=== PATIENT | female | born 1935 | race Asian ===

== ENCOUNTER 2017-02-26 16:33 | Inpatient (IN) | payer MEDICARE, MEDICAID ==
[~2017-02-26] VITALS: Ht 149.9 cm; Wt 61.7 kg
[~2017-02-26 16:33] MED LIST: ACET-1770 PO; AMLO5TAB2 PO; ASCO500T8 PO; CALC0.25 PO; DOCU100T3 PO; FERR325T18 PO; LORA1TAB PO; MULT-658 PO; OLAN7.5T5 PO; ONDA4TAB10 PO; POLY17PO3 PO; PSYL1PAC9 PO; SERT100T5 PO; SERT50TA5 PO; VITA1TAB3 PO; [UNRECOGNIZED DRUG - CODE] PEG
[2017-02-26] MEDS ORDERED: SODIUM CHLORIDE FLUSH 10ML SYR IVF ONE (17:00)
[2017-02-26] MEDS ORDERED: MIDODRINE 5 MG TABLET PO ONE (17:00)
[2017-02-26] MEDS ORDERED: SODIUM CHLORIDE 0.9% 1,000ML IVBOLUS ONE ×2 (17:00→22:00)
[2017-02-26] MEDS ORDERED: HYDROCORTISONE 100 MG INJ. IVPush ONE (17:00)
[2017-02-26 17:02] LABS: BASOPHILS % (AUTO) 0 % (0-1); EOSINOPHILS % (AUTO) 0 % (1-7); LYMPHOCYTES # (AUTO) 0.68 x10^3/uL (1-3.4); LYMPHOCYTES % (AUTO) 5 % (22-44); MD NO; MEAN CORPUSCULAR HEMOGLOBIN 31.2 pg (27.0-34.8); MEAN CORPUSCULAR HGB CONC 31.8 g/dL (32.4-35.8); MEAN CORPUSCULAR VOLUME 98.1 fL (80-100); MEAN PLATELET VOLUME 9.6 fL (7.4-10.4); MONOCYTES # (AUTO) 0.76 x10^3/uL (0.2-0.8); MONOCYTES % (AUTO) 5 % (2-9); NEUTROPHILS # (AUTO) 12.52 x10^3/uL (1.8-6.8); NEUTROPHILS % (AUTO) 90 % (42-75); PLATELET COUNT 266 x10^3/uL (130-400); RED BLOOD COUNT 4.09 x10^6/uL (3.82-5.3); RED CELL DISTRIBUTION WIDTH 17.1 % (9.6-15.2)
[2017-02-26 17:09] LABS: ALBUMIN 5.2 g/dL (3.4-5.0); ANION GAP 21 mmol/L (5-15); CHLORIDE 92 mmol/L (98-107); CREATININE 3.84 mg/dL (0.55-1.02)
[2017-02-26] MEDS ORDERED: CEFTRIAXONE PMX 1GM/50ML 50 ML IVPB ONE (18:00)
[2017-02-26] MEDS: PLEASE ENTER HEIGHT AND WEIGHT MC SCH ×2 (18:30→21:33)
[2017-02-26] MEDS ORDERED: ASPI-496 PO (19:51)
[2017-02-26] MEDS ORDERED: [UNRECOGNIZED DRUG - CODE] PO (19:51)
[2017-02-26] MEDS ORDERED: MIDO10TA PO (19:51)
[2017-02-26] MEDS ORDERED: LORA-446 PO (19:51)
[2017-02-26] MEDS ORDERED: ATOR40TA PO (19:51)
[2017-02-26] MEDS ORDERED: CEFTRIAXONE PMX 1GM/50ML 50 ML ONE (19:52)
[2017-02-26 19:53] LABS: CLOSTRIDIUM DIFFICILE ANTIGEN NEGATIVE; CLOSTRIDIUM DIFFICILE TOXIN NEGATIVE (Negative)
[2017-02-26] MEDS ORDERED: DESMOPRESSIN 4 MCG/ML IVPush ONE (20:00)
[2017-02-26] MEDS ORDERED: OMNIPAQUE 350 MG/ML, 100ML BOTTLE ONE (21:14)
[2017-02-26] MEDS: SODIUM CHLORIDE 0.9% 1,000 ML IV SCH (22:17)
[2017-02-26] MEDS ORDERED: ONDANSETRON 2MG/ML, 2ML IVPush PRN (22:30)
[2017-02-26 23:01] VITALS: BP 95/74
[2017-02-26] MEDS: METRONIDAZOLE PMX 500MG/100ML 100 ML IV SCH (23:48)
[2017-02-27] MEDS ORDERED: ALBUTEROL/IPRATROPIUM 2.5MG/0.5MG, 3 ML NPPB PRN (02:00)
[2017-02-27 04:00] VITALS: BP 129/68
[2017-02-27 04:42] LABS: BASOPHILS # (AUTO) 0.01 x10^3/uL (0-0.1); BASOPHILS % (AUTO) 0 % (0-1); EOSINOPHILS % (AUTO) 0 % (1-7); LYMPHOCYTES # (AUTO) 0.73 x10^3/uL (1-3.4); LYMPHOCYTES % (AUTO) 6 % (22-44); MD NO; MEAN CORPUSCULAR HEMOGLOBIN 31.5 pg (27.0-34.8); MEAN CORPUSCULAR HGB CONC 32.5 g/dL (32.4-35.8); MEAN CORPUSCULAR VOLUME 96.7 fL (80-100); MEAN PLATELET VOLUME 9.6 fL (7.4-10.4); MONOCYTES # (AUTO) 0.41 x10^3/uL (0.2-0.8); MONOCYTES % (AUTO) 4 % (2-9); NEUTROPHILS # (AUTO) 10.77 x10^3/uL (1.8-6.8); NEUTROPHILS % (AUTO) 90 % (42-75); PLATELET COUNT 196 x10^3/uL (130-400); RED BLOOD COUNT 3.13 x10^6/uL (3.82-5.3); RED CELL DISTRIBUTION WIDTH 16.9 % (9.6-15.2)
[2017-02-27 04:52] LABS: CHLORIDE 103 mmol/L (98-107)
[2017-02-27 04:59] LABS: ALANINE AMINOTRANSFERASE 61 U/L (12-78); ALBUMIN 3.8 g/dL (3.4-5.0); ALKALINE PHOSPHATASE 131 U/L (45-117); ANION GAP 12 mmol/L (5-15); BILIRUBIN,TOTAL 0.4 mg/dL (0.2-1.0); CALCIUM 7.7 mg/dL (8.5-10.1); CREATININE 4.05 mg/dL (0.55-1.02)
[2017-02-27] MEDS: PANTOPRAZOLE 80 MG in SODIUM CHLORIDE 0.9% 100 ML IV SCH ×2 (06:02→18:37)
[2017-02-27] MEDS ORDERED: PANTOPRAZOLE 40 MG IV IVPush SCH (07:30)
[2017-02-27] MEDS: SERTRALINE 50MG TABLET PO SCH (08:03)
[2017-02-27] MEDS: SODIUM CHLORIDE 0.9% 1,000 ML IV SCH ×2 (08:04→21:04)
[2017-02-27] MEDS: METRONIDAZOLE PMX 500MG/100ML 100 ML IV SCH ×3 (08:04→22:57)
[2017-02-27] MEDS: MIDODRINE 5 MG TABLET PO SCH ×3 (08:04→21:29)
[2017-02-27] MEDS ORDERED: GOLYTELY 4,000ML ORAL.SOL PEG ONE (17:00)
[2017-02-27 20:00] VITALS: BP 140/78
[2017-02-27] MEDS ORDERED: CEFTRIAXONE PMX 1GM/50ML 50 ML IV SCH (21:00)
[2017-02-27] MEDS: SERTRALINE 100MG TABLET PO SCH (21:04)
[2017-02-28 02:00] VITALS: BP 150/88
[2017-02-28] MEDS: PANTOPRAZOLE 80 MG in SODIUM CHLORIDE 0.9% 100 ML IV SCH ×2 (05:22→10:30)
[2017-02-28 06:53] VITALS: BP 129/75
[2017-02-28] MEDS: METRONIDAZOLE PMX 500MG/100ML 100 ML IV SCH ×3 (07:17→23:46)
[2017-02-28] MEDS: SODIUM CHLORIDE 0.9% 1,000 ML IV SCH ×3 (08:00→21:31)
[2017-02-28] MEDS: SERTRALINE 50MG TABLET PO SCH (09:00)
[2017-02-28] MEDS: MIDODRINE 5 MG TABLET PO SCH ×3 (09:00→21:07)
[2017-02-28] MEDS ORDERED: FENTANYL PF 100 MCG/2ML ONE (09:02)
[2017-02-28] MEDS ORDERED: MIDAZOLAM 1 MG/ML, 5ML ONE (09:02)
[2017-02-28 10:41] VITALS: BP 166/81
[2017-02-28 12:51] VITALS: BP 156/69
[2017-02-28] MEDS ORDERED: ALBUMIN HUMAN 25% 100 ML IV ONE (17:00)
[2017-02-28] MEDS: CEFTRIAXONE 1,000 MG in DEXTROSE 5% 50 ML IV SCH (21:06)
[2017-02-28] MEDS: SERTRALINE 100MG TABLET PO SCH (21:07)
[2017-02-28 21:29] VITALS: BP 127/57
[2017-03-01] VITALS (12 sets, daily range): BP systolic 84–156; BP diastolic 54–85
[2017-03-01] MEDS: PANTOPRAZOLE 80 MG in SODIUM CHLORIDE 0.9% 100 ML IV SCH ×3 (04:06→20:46)
[2017-03-01 05:15] LABS: ANION GAP 13 mmol/L (5-15); CHLORIDE 104 mmol/L (98-107)
[2017-03-01 05:17] LABS: CALCIUM 7.9 mg/dL (8.5-10.1); CREATININE 3.52 mg/dL (0.55-1.02)
[2017-03-01 05:27] LABS: MEAN CORPUSCULAR HEMOGLOBIN 30.9 pg (27.0-34.8); MEAN CORPUSCULAR HGB CONC 32.2 g/dL (32.4-35.8); MEAN PLATELET VOLUME 9.6 fL (7.4-10.4); PLATELET COUNT 215 x10^3/uL (130-400); RED BLOOD COUNT 2.29 x10^6/uL (3.82-5.3); RED CELL DISTRIBUTION WIDTH 17.4 % (9.6-15.2)
[2017-03-01 06:23] LABS: BASOPHILS # (AUTO) 0.02 x10^3/uL (0-0.1); BASOPHILS % (AUTO) 0 % (0-1); EOSINOPHILS # (AUTO) 0.06 x10^3/uL (0-0.4); EOSINOPHILS % (AUTO) 1 % (1-7); LYMPHOCYTES # (AUTO) 1.08 x10^3/uL (1-3.4); LYMPHOCYTES % (AUTO) 10 % (22-44); MD SCAN; MONOCYTES # (AUTO) 0.66 x10^3/uL (0.2-0.8); MONOCYTES % (AUTO) 6 % (2-9); NEUTROPHILS # (AUTO) 9.39 x10^3/uL (1.8-6.8); NEUTROPHILS % (AUTO) 84 % (42-75)
[2017-03-01] MEDS: MIDODRINE 5 MG TABLET PO SCH ×3 (09:16→20:15)
[2017-03-01] MEDS: SERTRALINE 50MG TABLET PO SCH (09:16)
[2017-03-01] MEDS ORDERED: ARANESP 100 MCG/ML **ESRD SQ SCH (11:30)
[2017-03-01] MEDS: METRONIDAZOLE PMX 500MG/100ML 100 ML IV SCH ×2 (13:53→20:14)
[2017-03-01] MEDS: CEFTRIAXONE 1,000 MG in DEXTROSE 5% 50 ML IV SCH (20:14)
[2017-03-01] MEDS: SERTRALINE 100MG TABLET PO SCH (20:15)
[2017-03-02 02:13] VITALS: BP 156/85
[2017-03-02 04:56] LABS: MEAN CORPUSCULAR HEMOGLOBIN 31.5 pg (27.0-34.8); MEAN CORPUSCULAR HGB CONC 33.6 g/dL (32.4-35.8); MEAN CORPUSCULAR VOLUME 93.7 fL (80-100); MEAN PLATELET VOLUME 9.7 fL (7.4-10.4); PLATELET COUNT 222 x10^3/uL (130-400); RED BLOOD COUNT 2.46 x10^6/uL (3.82-5.3); RED CELL DISTRIBUTION WIDTH 18.3 % (9.6-15.2)
[2017-03-02 05:10] LABS: CHLORIDE 106 mmol/L (98-107)
[2017-03-02] MEDS: METRONIDAZOLE PMX 500MG/100ML 100 ML IV SCH ×3 (05:11→20:30)
[2017-03-02 05:15] LABS: ALANINE AMINOTRANSFERASE 58 U/L (12-78); ALBUMIN 3.5 g/dL (3.4-5.0); ALKALINE PHOSPHATASE 123 U/L (45-117); ANION GAP 13 mmol/L (5-15); BILIRUBIN,TOTAL 0.7 mg/dL (0.2-1.0); CALCIUM 7.4 mg/dL (8.5-10.1); CREATININE 4.92 mg/dL (0.55-1.02); TOTAL PROTEIN 7.1 g/dL (6.4-8.2)
[2017-03-02] MEDS: PANTOPRAZOLE 80 MG in SODIUM CHLORIDE 0.9% 100 ML IV SCH (05:44)
[2017-03-02 06:04] LABS: BASOPHILS # (AUTO) 0.09 x10^3/uL (0-0.1); BASOPHILS % (AUTO) 1 % (0-1); EOSINOPHILS # (AUTO) 0.14 x10^3/uL (0-0.4); EOSINOPHILS % (AUTO) 1 % (1-7); LYMPHOCYTES # (AUTO) 1.94 x10^3/uL (1-3.4); LYMPHOCYTES % (AUTO) 15 % (22-44); MD SCAN; MONOCYTES % (AUTO) 6 % (2-9); NEUTROPHILS # (AUTO) 9.63 x10^3/uL (1.8-6.8); NEUTROPHILS % (AUTO) 76 % (42-75)
[2017-03-02 08:09] VITALS: BP 163/88
[2017-03-02] MEDS ORDERED: POTASSIUM CHLORIDE 10% 20 MEQ/15 ML UDC PEG ONE (10:00)
[2017-03-02] MEDS ORDERED: POTASSIUM CHLORIDE 20 MEQ PACKET ONE (10:19)
[2017-03-02] MEDS: SERTRALINE 50MG TABLET PO SCH (10:24)
[2017-03-02] MEDS: MIDODRINE 5 MG TABLET PO SCH ×3 (10:24→20:31)
[2017-03-02 14:04] VITALS: BP 158/81
[2017-03-02 19:20] VITALS: BP 159/77
[2017-03-02] MEDS ORDERED: ALBUTEROL SULFATE 2.5 MG/3 ML ONE (20:00)
[2017-03-02] MEDS: SERTRALINE 100MG TABLET PO SCH (20:31)
[2017-03-02] MEDS: CEFTRIAXONE 1,000 MG in DEXTROSE 5% 50 ML IV SCH (20:31)
[2017-03-02] MEDS: ACETAMINOPHEN 325 MG TABLET PO PRN (20:32)
[2017-03-02 21:48] VITALS: BP 160/90
[2017-03-03 02:00] VITALS: BP 186/92
[2017-03-03] MEDS: ACETAMINOPHEN 325 MG TABLET PO PRN (02:43)
[2017-03-03 04:13] VITALS: BP 186/75
[2017-03-03] MEDS: METRONIDAZOLE PMX 500MG/100ML 100 ML IV SCH ×3 (05:10→21:00)
[2017-03-03 05:20] LABS: ANION GAP 12 mmol/L (5-15); CALCIUM 7.9 mg/dL (8.5-10.1); CHLORIDE 109 mmol/L (98-107)
[2017-03-03 05:22] LABS: CREATININE 6.64 mg/dL (0.55-1.02); MEAN CORPUSCULAR HEMOGLOBIN 30.8 pg (27.0-34.8); MEAN CORPUSCULAR HGB CONC 32.6 g/dL (32.4-35.8); MEAN CORPUSCULAR VOLUME 94.4 fL (80-100); MEAN PLATELET VOLUME 10.5 fL (7.4-10.4); PLATELET COUNT 231 x10^3/uL (130-400); RED BLOOD COUNT 2.56 x10^6/uL (3.82-5.3); RED CELL DISTRIBUTION WIDTH 18.1 % (9.6-15.2)
[2017-03-03 05:50] LABS: BASOPHILS % (AUTO) 0 % (0-1); EOSINOPHILS # (AUTO) 0.01 x10^3/uL (0-0.4); EOSINOPHILS % (AUTO) 0 % (1-7); LYMPHOCYTES # (AUTO) 1.01 x10^3/uL (1-3.4); LYMPHOCYTES % (AUTO) 8 % (22-44); MD SCAN; MONOCYTES # (AUTO) 0.87 x10^3/uL (0.2-0.8); MONOCYTES % (AUTO) 7 % (2-9); NEUTROPHILS # (AUTO) 10.23 x10^3/uL (1.8-6.8); NEUTROPHILS % (AUTO) 84 % (42-75)
[2017-03-03 08:30] VITALS: BP 185/83
[2017-03-03] MEDS: PANTOPRAZOLE GRAN. PKT 40 MG GT SCH (09:23)
[2017-03-03] MEDS: MIDODRINE 5 MG TABLET PO SCH ×3 (09:23→21:00)
[2017-03-03] MEDS: SERTRALINE 50MG TABLET PO SCH (09:25)
[2017-03-03] MEDS ORDERED: HALOPERIDOL 5 MG/ML ONE (12:46)
[2017-03-03] MEDS ORDERED: HALOPERIDOL 5 MG/ML IV ONE (13:00)
[2017-03-03 13:01] VITALS: BP 163/87
[2017-03-03] MEDS ORDERED: ALBUMIN HUMAN 25% IV PRN (16:30)
[2017-03-03] MEDS ORDERED: ALBUMIN HUMAN 25% 50 ML IV ONE (16:30)
[2017-03-03 20:41] VITALS: BP 119/71
[2017-03-03] MEDS: CEFTRIAXONE 1,000 MG in DEXTROSE 5% 50 ML IV SCH (21:00)
[2017-03-03] MEDS: SERTRALINE 100MG TABLET PO SCH (21:17)
[2017-03-04 02:40] VITALS: BP 118/75
[2017-03-04] MEDS: METRONIDAZOLE PMX 500MG/100ML 100 ML IV SCH ×3 (04:31→20:35)
[2017-03-04] MEDS: MIDODRINE 5 MG TABLET PO SCH ×3 (08:20→20:36)
[2017-03-04] MEDS: PANTOPRAZOLE GRAN. PKT 40 MG GT SCH (08:21)
[2017-03-04] MEDS: SERTRALINE 50MG TABLET PO SCH (08:22)
[2017-03-04 08:31] VITALS: BP 128/76
[2017-03-04 15:33] VITALS: BP 164/79
[2017-03-04 19:41] VITALS: BP 128/90
[2017-03-04] MEDS: SERTRALINE 100MG TABLET PO SCH (20:35)
[2017-03-04] MEDS: CEFTRIAXONE 1,000 MG in DEXTROSE 5% 50 ML IV SCH (20:35)
[2017-03-05] MEDS ORDERED: HALOPERIDOL 5 MG/ML IV ONE (00:30)
[2017-03-05 02:11] VITALS: BP 152/77
[2017-03-05] MEDS: METRONIDAZOLE PMX 500MG/100ML 100 ML IV SCH ×2 (04:36→14:35)
[2017-03-05 05:33] LABS: BASOPHILS # (AUTO) 0.02 x10^3/uL (0-0.1); BASOPHILS % (AUTO) 0 % (0-1); EOSINOPHILS # (AUTO) 0.01 x10^3/uL (0-0.4); EOSINOPHILS % (AUTO) 0 % (1-7); LYMPHOCYTES # (AUTO) 1.02 x10^3/uL (1-3.4); LYMPHOCYTES % (AUTO) 10 % (22-44); MD NO; MEAN CORPUSCULAR HEMOGLOBIN 31.4 pg (27.0-34.8); MEAN CORPUSCULAR HGB CONC 33.2 g/dL (32.4-35.8); MEAN CORPUSCULAR VOLUME 94.5 fL (80-100); MONOCYTES # (AUTO) 0.88 x10^3/uL (0.2-0.8); MONOCYTES % (AUTO) 8 % (2-9); NEUTROPHILS # (AUTO) 8.85 x10^3/uL (1.8-6.8); NEUTROPHILS % (AUTO) 82 % (42-75); PLATELET COUNT 170 x10^3/uL (130-400); RED BLOOD COUNT 2.53 x10^6/uL (3.82-5.3); RED CELL DISTRIBUTION WIDTH 19.1 % (9.6-15.2)
[2017-03-05 05:45] LABS: CHLORIDE 101 mmol/L (98-107)
[2017-03-05 05:54] LABS: ANION GAP 12 mmol/L (5-15); CALCIUM 8.8 mg/dL (8.5-10.1); CREATININE 5.14 mg/dL (0.55-1.02)
[2017-03-05 07:48] VITALS: BP 147/83
[2017-03-05] MEDS: PANTOPRAZOLE GRAN. PKT 40 MG GT SCH (08:08)
[2017-03-05] MEDS: SERTRALINE 50MG TABLET PO SCH (08:08)
[2017-03-05] MEDS: MIDODRINE 5 MG TABLET PO SCH (08:08)
[2017-03-05] MEDS ORDERED: METR500T PO (12:57)
[2017-03-05] MEDS ORDERED: CIPR500T3 PO (12:57)
[2017-03-05 14:54] VITALS: BP 118/73
== END 2017-03-05 17:24 | disposition home or self-care (01) | DRG 871 ==
LOC: ED 19:08 → SUATTDRO 19:09 → EDIP 19:10 → CCU 22:31 → 4WST 02-27 11:23
PROVIDERS: ADMIT Hospitalist; ATTEND Family Medicine
PROC: 0DBG8ZX Excision of Left Large Intestine, Via Natural or Artificial Opening Endoscopic, Diagnostic (ICD-10-PCS; 2017-02-28)
PROC: 5A1D70Z Performance of Urinary Filtration, Intermittent, Less than 6 Hours Per Day (ICD-10-PCS; principal; 2017-02-28 10:00)
PROC: 30233N1 Transfusion of Nonautologous Red Blood Cells into Peripheral Vein, Percutaneous Approach (ICD-10-PCS; 2017-03-01)
PROC: 5A1D70Z Performance of Urinary Filtration, Intermittent, Less than 6 Hours Per Day (ICD-10-PCS; 2017-03-03)
PROC: 5A1D70Z Performance of Urinary Filtration, Intermittent, Less than 6 Hours Per Day (ICD-10-PCS; 2017-03-05)
DX: A41.9 Sepsis, unspecified organism (principal); N18.6 End stage renal disease; K55.9 Vascular disorder of intestine, unspecified; I95.3 Hypotension of hemodialysis; I12.0 Hypertensive chronic kidney disease with stage 5 chronic kidney disease or end stage renal disease; D62 Acute posthemorrhagic anemia; E83.51 Hypocalcemia; N25.81 Secondary hyperparathyroidism of renal origin; D63.1 Anemia in chronic kidney disease; E86.0 Dehydration; E87.6 Hypokalemia; F02.80 Dementia in other diseases classified elsewhere, unspecified severity, without behavioral disturbance, psychotic disturbance, mood disturbance, and anxiety; G30.9 Alzheimer's disease, unspecified; K44.9 Diaphragmatic hernia without obstruction or gangrene; K57.30 Diverticulosis of large intestine without perforation or abscess without bleeding; M81.0 Age-related osteoporosis without current pathological fracture; N25.0 Renal osteodystrophy; N63.0 Unspecified lump in unspecified breast; R13.12 Dysphagia, oropharyngeal phase; R62.7 Adult failure to thrive; R63.3 Feeding difficulties; Z86.73 Personal history of transient ischemic attack (TIA), and cerebral infarction without residual deficits; Z99.2 Dependence on renal dialysis; Z93.1 Gastrostomy status; Z95.828 Presence of other vascular implants and grafts
CPT/HCPCS: 36415; 36600; 70450; 71010; 74177; 80048; 80053; 82040; 82533; 82803; 83605; 83735; 84100; 85014; 85018; 85025; 86704; 86706; 86850; 86870; 86880; 86900; 86902; 86922; 86923; 87040; 87081; 87324; 87340; 88305; 93005; 93306; 94640; 96361; 96365; 96366; 96375; J0696; J0882; J2250; J2405; J2597; J3010; P9047; Q9967; C9113; J1630; J1720; J7030; P9016